=== PATIENT | male | born 1970 | race Caucasian/White ===

== ENCOUNTER → 2023-12-11 12:56 | Outpatient (REF) | payer BC, SELFPAY ==
[2023-12-11 14:07] LABS: % Basophils 1.3 % (0-2); % Immature Granulocytes 0.2 % (0-0.5); % Lymphocytes 45.2 % (20.5-51.1); % Neutrophils 42.3 % (42.2-75.2); Absolute Basophils 0.1 10^3/uL (0-0.2); Absolute Eosinophils 0.2 10^3/uL (0-0.7); Absolute Lymphocytes 2.7 10^3/uL (1.2-3.4); Absolute Monocytes 0.4 10^3/uL (0.1-0.6); Absolute Neutrophils 2.6 10^3/uL (1.4-6.5); Hematocrit 41.1 % (39.0-52.0); Hemoglobin 14.1 g/dL (13.0-18.0); Mean Corp Hgb Conc. 34.3 g/dL (33.0-37.0); Mean Corpuscular Hgb 31.7 pg (27.0-31.0); Mean Corpuscular Volume 92.4 fL (80.0-94.0); Mean Platelet Volume 8.9 fL (7.4-10.4); Nucleated Red Blood Cells % 0 % (-); Platelet Count 256 10^3/uL (130-400); Red Blood Cell Count 4.45 10^6/uL (4.70-6.10)
[2023-12-11 14:24] LABS: Erythrocyte Sed Rate 9 mm/hour (0-20)
[2023-12-11 14:43] LABS: C-Reactive Protein < 5.00 mg/L (0.0-10.00)
[2023-12-11 15:00] LABS: Free T4 1.13 ng/dl (0.78-2.19); Vitamin D, 25-OH*** 63.1 ng/mL (30-80)
[2023-12-11 15:13] LABS: TSH 2.64 uIU/ml (0.47-4.68)
[2023-12-11 15:17] LABS: ALT (SGPT) 17 U/L (0-50); AST (SGOT) 26 U/L (17-59); Albumin 4.5 g/dl (3.5-5.0); Alkaline Phosphatase 65 U/L (38-126); Blood Urea Nitrogen 23 mg/dl (9-20); Calcium 9.8 mg/dl (8.4-10.2); Carbon Dioxide 28 mmol/L (22-30); Chloride 103 mmol/L (98-107); Creatine Phosphokinase 182 U/L (55-170); Glucose 82 mg/dl (70-99); Iron 169 ug/dl (49-181); Potassium 4.6 mmol/L (3.5-5.1); Sodium 137 mmol/L (135-145); Total Bilirubin 0.8 mg/dl (0.2-1.3); Total Protein 7.2 g/dl (6.3-8.2); Uric Acid 5.1 mg/dl (3.5-8.5); eGFR > 60.00
[2023-12-11 15:25] LABS: Percent Saturation 48 % (20-50); Total Iron Binding Capacity 348 ug/dl (261-462)
[2023-12-11 15:27] LABS: Ferritin 36.3 ng/ml (17.9-464.0)
[2023-12-11 15:41] LABS: Vitamin B12 806 pg/ml (239-931)
[2023-12-11 16:09] LABS: IgA 213 mg/dl (70-400)
[2023-12-13 10:17] LABS: Intact PTH 47.4 pg/ml (13.6-85.8)
[2023-12-13 16:58] LABS: CCP Antibody IgG/IgA 3 Units (0-19)
[2023-12-13 18:54] LABS: Endomysial IgA Antibody Titer <1:10 (<1:10)
[2023-12-13 20:55] LABS: ANA, IgG Reflex to HEp-2 None Detected (None Detected)
[2023-12-15 16:55] LABS: Lyme Antibody Screen, EIA Negative (Negative); Rheumatoid Agglutinin Less Than 10 IU (<10 IU)
[2023-12-17 14:31] LABS: tTG IgA Antibody 9.9 EU/ml (0-19); tTG IgG Antibody 16.3 EU/ml (0-19)
== END ==
LOC: RAD 12:56
PROVIDERS: FAMILY PHYSICIAN Family Medicine
DX: M79.641 Pain in right hand (principal); M79.642 Pain in left hand; G89.29 Other chronic pain; G57.93 Unspecified mononeuropathy of bilateral lower limbs; M25.50 Pain in unspecified joint; M54.2 Cervicalgia; M79.10 Myalgia, unspecified site; R14.0 Abdominal distension (gaseous); R51.9 Headache, unspecified
CPT/HCPCS: 36415; 72040; 72100; 73130; 73630; 80053; 82306; 82550; 82607; 82728; 82784; 83516; 83540; 83550; 83970; 84439; 84443; 84550; 85025; 85652; 86038; 86140; 86200; 86231; 86430; 86618

== ENCOUNTER → 2023-12-12 16:48 | Outpatient (REF) | payer BC, SELFPAY | LOC: RAD 16:48 | PROVIDERS: ATTENDING PHYSICIAN Physician Assistant; FAMILY PHYSICIAN Family Medicine | DX: M54.50 Low back pain, unspecified (principal); G89.29 Other chronic pain | CPT/HCPCS: 72072 ==

== ENCOUNTER 2024-03-12 08:22 | Outpatient (RCR) | payer BC, SELFPAY | END 2024-03-12 23:59 | disposition home or self-care (01) | LOC: CRHB 08:22 | DX: I25.10 Atherosclerotic heart disease of native coronary artery without angina pectoris (principal); I25.2 Old myocardial infarction; Z95.5 Presence of coronary angioplasty implant and graft | CPT/HCPCS: 93798 ==

== ENCOUNTER 2024-04-16 17:50 | Outpatient (RCR) | payer BC, SELFPAY | END 2024-04-16 23:59 | disposition home or self-care (01) | LOC: CRHB 17:50 | PROVIDERS: ATTENDING PHYSICIAN Internal Medicine Cardiovascular Disease; FAMILY PHYSICIAN Family Medicine | DX: I25.10 Atherosclerotic heart disease of native coronary artery without angina pectoris (principal); Z95.5 Presence of coronary angioplasty implant and graft; I25.2 Old myocardial infarction | CPT/HCPCS: 93797; 93798; G0422; G0423 ==

== ENCOUNTER 2024-05-14 17:43 | Outpatient (RCR) | payer BC, SELFPAY | END 2024-05-14 23:59 | disposition home or self-care (01) | LOC: CRHB 17:43 | PROVIDERS: ATTENDING PHYSICIAN Internal Medicine Cardiovascular Disease; FAMILY PHYSICIAN Family Medicine | DX: I25.10 Atherosclerotic heart disease of native coronary artery without angina pectoris (principal); I25.2 Old myocardial infarction; Z95.5 Presence of coronary angioplasty implant and graft | CPT/HCPCS: 93798; G0422 ==

== ENCOUNTER → 2024-06-15 09:30 | Outpatient (REF) | payer BC, SELFPAY ==
[2024-06-15 10:47] LABS: ALT (SGPT) 65 U/L (0-50); AST (SGOT) 42 U/L (17-59); Albumin 4.5 g/dl (3.5-5.0); Alkaline Phosphatase 65 U/L (38-126); Blood Urea Nitrogen 19 mg/dl (9-20); Calcium 9.6 mg/dl (8.4-10.2); Carbon Dioxide 26 mmol/L (22-30); Chloride 101 mmol/L (98-107); Cholesterol 111 mg/dl (50-199); Glucose 91 mg/dl (70-99); Potassium 4.5 mmol/L (3.5-5.1); Sodium 141 mmol/L (135-145); Total Bilirubin 0.8 mg/dl (0.2-1.3); Total Protein 7.1 g/dl (6.3-8.2); eGFR > 60.00
[2024-06-15 11:04] LABS: LDL Cholesterol, Direct 41 mg/dl
[2024-06-15 11:15] LABS: PSA, Total - Screen 1.04 ng/ml (0.0-4.0)
== END ==
LOC: REG 09:30
PROVIDERS: ATTENDING PHYSICIAN Family Medicine; FAMILY PHYSICIAN Internal Medicine Cardiovascular Disease
DX: E78.5 Hyperlipidemia, unspecified (principal); I21.02 ST elevation (STEMI) myocardial infarction involving left anterior descending coronary artery; N40.1 Benign prostatic hyperplasia with lower urinary tract symptoms; Z00.00 Encounter for general adult medical examination without abnormal findings
CPT/HCPCS: 36415; 80053; 82465; 83721; G0103

== ENCOUNTER 2024-06-16 16:59 | Outpatient (RCR) | payer BC, SELFPAY | END 2024-06-16 23:59 | disposition home or self-care (01) | LOC: CRHB 16:59 | PROVIDERS: ATTENDING PHYSICIAN Internal Medicine Cardiovascular Disease; FAMILY PHYSICIAN Family Medicine | DX: I25.10 Atherosclerotic heart disease of native coronary artery without angina pectoris (principal); Z95.5 Presence of coronary angioplasty implant and graft; I25.2 Old myocardial infarction | CPT/HCPCS: G0422; G0423 ==

== ENCOUNTER 2024-07-14 17:47 | Outpatient (RCR) | payer BC, SELFPAY | END 2024-07-14 23:59 | disposition home or self-care (01) | LOC: CRHB 17:47 | PROVIDERS: ATTENDING PHYSICIAN Internal Medicine Cardiovascular Disease | DX: I25.10 Atherosclerotic heart disease of native coronary artery without angina pectoris (principal); Z95.5 Presence of coronary angioplasty implant and graft; I25.2 Old myocardial infarction | CPT/HCPCS: 93306; G0422; G0423 ==

== ENCOUNTER → 2024-09-09 08:10 | Outpatient (REF) | payer BC, SELFPAY | LOC: RCS 08:10 | PROVIDERS: REFERRING PHYSICIAN Family Medicine | DX: R07.9 Chest pain, unspecified (principal) | CPT/HCPCS: 93017; 93350 ==

== ENCOUNTER → 2024-10-18 16:36 | Outpatient (REF) | payer BC, SELFPAY ==
[2024-10-18 17:37] LABS: Hematocrit 39.4 % (39.0-52.0); Hemoglobin 13.3 g/dL (13.0-18.0); Mean Corp Hgb Conc. 33.8 g/dL (33.0-37.0); Mean Corpuscular Hgb 32.3 pg (27.0-31.0); Mean Corpuscular Volume 95.6 fL (80.0-94.0); Mean Platelet Volume 9.3 fL (7.4-10.4); Platelet Count 239 10^3/uL (130-400); Red Blood Cell Count 4.12 10^6/uL (4.70-6.10); Red Cell Dist. Width 12.5 % (11.5-14.5); White Blood Cell Count 6.5 10^3/uL (4.8-10.8)
[2024-10-18 17:54] LABS: Blood Urea Nitrogen 24 mg/dl (9-20); Calcium 9.7 mg/dl (8.4-10.2); Carbon Dioxide 29 mmol/L (22-30); Chloride 98 mmol/L (98-107); Glucose 84 mg/dl (70-99); Potassium 4.7 mmol/L (3.5-5.1); Sodium 136 mmol/L (135-145); eGFR > 60.00
[2024-10-18 18:23] LABS: TSH Reflex To Free T4 3.24 uIU/ml (0.47-4.68)
== END ==
LOC: REG 16:36
PROVIDERS: FAMILY PHYSICIAN Family Medicine; OTHER PHYSICIAN Physician Assistant
DX: I95.9 Hypotension, unspecified (principal)
CPT/HCPCS: 36415; 80048; 84443; 85027

== ENCOUNTER → 2024-11-03 16:38 | Outpatient (REF) | payer BC, SELFPAY ==
[2024-11-03 17:33] LABS: % Basophils 0.9 % (0-2); % Eosinophils 4.8 % (0-6); % Immature Granulocytes 0.3 % (0-0.5); % Monocytes 7.2 % (1.7-9.3); % Neutrophils 57.8 % (42.2-75.2); Absolute Basophils 0.1 10^3/uL (0-0.2); Absolute Eosinophils 0.3 10^3/uL (0-0.7); Absolute Monocytes 0.5 10^3/uL (0.1-0.6); Hematocrit 37.4 % (39.0-52.0); Hemoglobin 12.7 g/dL (13.0-18.0); Mean Corpuscular Hgb 31.8 pg (27.0-31.0); Mean Corpuscular Volume 93.7 fL (80.0-94.0); Nucleated Red Blood Cells % 0 % (-); Platelet Count 202 10^3/uL (130-400); Red Blood Cell Count 3.99 10^6/uL (4.70-6.10); Red Cell Dist. Width 12.7 % (11.5-14.5); White Blood Cell Count 6.9 10^3/uL (4.8-10.8)
[2024-11-03 17:45] LABS: ALT (SGPT) 38 U/L (0-50); AST (SGOT) 29 U/L (17-59); Albumin 4.1 g/dl (3.5-5.0); Alkaline Phosphatase 52 U/L (38-126); Blood Urea Nitrogen 20 mg/dl (9-20); Calcium 9.4 mg/dl (8.4-10.2); Carbon Dioxide 29 mmol/L (22-30); Chloride 101 mmol/L (98-107); Creatine Phosphokinase 64 U/L (55-170); Glucose 91 mg/dl (70-99); Sodium 135 mmol/L (135-145); Total Bilirubin 0.6 mg/dl (0.2-1.3); Total Protein 6.5 g/dl (6.3-8.2); Uric Acid 3.9 mg/dl (3.5-8.5); eGFR > 60.00
[2024-11-03 17:49] LABS: C-Reactive Protein < 5.00 mg/L (0.0-10.00)
[2024-11-03 18:03] LABS: Erythrocyte Sed Rate 2 mm/hour (0-20)
[2024-11-03 18:20] LABS: TSH 2.56 uIU/ml (0.47-4.68)
[2024-11-03 18:24] LABS: Ferritin 37.6 ng/ml (17.9-464.0)
[2024-11-04 10:24] LABS: Rheumatoid Agglutinin Less Than 10 IU (<10 IU)
[2024-11-04 11:35] LABS: Lyme Antibody Screen, EIA Negative (Negative)
[2024-11-05 22:02] LABS: ANA, IgG Reflex to HEp-2 None Detected (None Detected)
== END ==
LOC: REG 16:38
PROVIDERS: ATTENDING PHYSICIAN Physician Assistant; FAMILY PHYSICIAN Family Medicine
DX: M54.50 Low back pain, unspecified (principal); G89.29 Other chronic pain; M54.2 Cervicalgia; M79.10 Myalgia, unspecified site; M25.50 Pain in unspecified joint; M79.642 Pain in left hand; M79.641 Pain in right hand; G57.93 Unspecified mononeuropathy of bilateral lower limbs; M25.562 Pain in left knee; M25.561 Pain in right knee
CPT/HCPCS: 36415; 73564; 80053; 82550; 82728; 83970; 84443; 84550; 85025; 85652; 86038; 86140; 86200; 86430; 86618

== ENCOUNTER → 2025-01-21 08:20 | Outpatient (REF) | payer BC, SELFPAY | LOC: EMG 08:20 | PROVIDERS: ATTENDING PHYSICIAN Physician Assistant; FAMILY PHYSICIAN Family Medicine | DX: M79.10 Myalgia, unspecified site (principal); M54.50 Low back pain, unspecified; G89.29 Other chronic pain; M54.2 Cervicalgia; M79.641 Pain in right hand; G57.93 Unspecified mononeuropathy of bilateral lower limbs; R29.898 Other symptoms and signs involving the musculoskeletal system; R20.0 Anesthesia of skin | CPT/HCPCS: 95886; 95911 ==

== ENCOUNTER → 2025-02-25 08:32 | Outpatient (REF) | payer BC, SELFPAY ==
[2025-02-25 09:53] LABS: Calcium 9.6 mg/dl (8.4-10.2); Uric Acid 4.9 mg/dl (3.5-8.5)
[2025-02-25 10:08] LABS: Vitamin D, 25-OH*** 43.5 ng/mL (30-80)
[2025-02-25 10:22] LABS: CKMB 0.7 ng/ml (0.0-3.4); TSH 3.01 uIU/ml (0.47-4.68)
[2025-02-25 10:42] LABS: Vitamin B12 543 pg/ml (239-931)
[2025-02-25 11:32] LABS: CRP, Ultra Sensitive < 0.30 mg/L (0.30-5.00)
[2025-02-27 20:40] LABS: CCP Antibody IgG/IgA 1 Units (0-19)
== END ==
LOC: REG 08:32
PROVIDERS: ATTENDING PHYSICIAN Physician Assistant; FAMILY PHYSICIAN Family Medicine
DX: G62.9 Polyneuropathy, unspecified (principal); I10 Essential (primary) hypertension; G89.29 Other chronic pain; M54.50 Low back pain, unspecified; M79.641 Pain in right hand; G57.93 Unspecified mononeuropathy of bilateral lower limbs; E55.9 Vitamin D deficiency, unspecified; R51.9 Headache, unspecified
CPT/HCPCS: 36415; 82306; 82550; 82553; 82607; 83970; 84403; 84443; 84550; 85652; 86141; 86200

== ENCOUNTER → 2025-04-27 08:12 | Outpatient (REF) | payer BC, SELFPAY ==
[2025-04-27 10:29] LABS: ALT (SGPT) 35 U/L (0-50); AST (SGOT) 27 U/L (17-59); Albumin 4.7 g/dl (3.5-5.0); Alkaline Phosphatase 53 U/L (38-126); Blood Urea Nitrogen 17 mg/dl (9-20); Calcium 9.6 mg/dl (8.4-10.2); Carbon Dioxide 28 mmol/L (22-30); Chloride 103 mmol/L (98-107); Glucose 93 mg/dl (70-99); HDL Cholesterol 65 mg/dl; LDL Cholesterol, Calculated 43 mg/dl; Potassium 5.0 mmol/L (3.5-5.1); Sodium 137 mmol/L (135-145); Total Protein 7.0 g/dl (6.3-8.2); Very Low Density Lipoprotein 9 mg/dl (0-30); eGFR > 60.00
== END ==
LOC: REG 08:12
PROVIDERS: ATTENDING PHYSICIAN Family Medicine
DX: E78.5 Hyperlipidemia, unspecified (principal); G62.9 Polyneuropathy, unspecified; I10 Essential (primary) hypertension
CPT/HCPCS: 36415; 80053; 80061

== ENCOUNTER → 2025-07-13 12:02 | Outpatient (REF) | payer BC, SELFPAY | LOC: RAD 12:02 | PROVIDERS: ATTENDING PHYSICIAN Psychiatry & Neurology Neurology; FAMILY PHYSICIAN Family Medicine | DX: R20.0 Anesthesia of skin (principal); R20.2 Paresthesia of skin; R53.1 Weakness; R53.83 Other fatigue | CPT/HCPCS: 70030 ==

== ENCOUNTER → 2025-07-13 17:20 | Outpatient (REF) | payer BC, SELFPAY | LOC: MRI 3T 17:20 | PROVIDERS: ATTENDING PHYSICIAN Psychiatry & Neurology Neurology; FAMILY PHYSICIAN Family Medicine | DX: R20.0 Anesthesia of skin (principal); R20.2 Paresthesia of skin; R53.1 Weakness; R53.83 Other fatigue | CPT/HCPCS: 70030; 70553; 72156; A9575 ==